=== PATIENT | male | born 1980 | race Caucasian/White ===

== ENCOUNTER 2020-09-15 11:54 | Emergency (ER) | payer MEDICAID ==
[~2020-09-15] VITALS: Ht 177.8 cm; Wt 88.0 kg
[2020-09-15] MEDS ORDERED: BACITRACIN ZINC OINT UDPKT TOP ONE (12:45)
[2020-09-15] MEDS ORDERED: ACETAMINOPHEN WITH CODEINE 300/30MG TABLET PO ONE (12:45)
[2020-09-15] MEDS ORDERED: LIDOCAINE HCL/EPINEPHRINE 1%-EPI 1:100,000 10 ML VIAL IJ ONE (12:45)
[2020-09-15] MEDS ORDERED: TETANUS, DIPHTHERIA, PERTUSSIS VAC/PF 0.5ML (>7YR OLD) IM ONE (12:45)
[2020-09-15] MEDS ORDERED: LIDOCAINE HCL/EPINEPHRINE 1%-EPI 1:100,000 20 ML VIAL INFIL ONE (13:00)
[2020-09-15 14:45] VITALS: BP 138/70
[2020-09-15] MEDS ORDERED: BO1 TP (15:02)
== END 2020-09-15 15:08 | disposition home or self-care (01) ==
LOC: ER 12:12
DX: S51.011A Laceration without foreign body of right elbow, initial encounter (principal); X99.8XXA Assault by other sharp object, initial encounter; Y93.89 Activity, other specified; Y92.511 Restaurant or cafe as the place of occurrence of the external cause; Z23 Encounter for immunization
CPT/HCPCS: 12001; 73080; 90471; 90715; 99283; A4217; J3490; Z7610

== ENCOUNTER 2020-10-25 09:52 | Emergency (ER) | payer MEDICAID, OTHER ==
[~2020-10-25] VITALS: Ht 170.2 cm; Wt 79.0 kg
[~2020-10-25 09:52] MED LIST: BO1 TP
[2020-10-25 09:54] VITALS: BP 153/88
[2020-10-25] MEDS ORDERED: MUPIROCIN 2% OINT 22GM TOP STA (11:21)
[2020-10-25] MEDS ORDERED: MUPI15CR11 TP (12:52)
== END 2020-10-25 13:35 | disposition home or self-care (01) ==
LOC: ER 09:52
DX: S90.812A Abrasion, left foot, initial encounter (principal); W25.XXXA Contact with sharp glass, initial encounter; Y93.89 Activity, other specified; Y92.89 Other specified places as the place of occurrence of the external cause
CPT/HCPCS: 73630; 99283; Z7610

== ENCOUNTER 2023-10-11 15:35 | Emergency (ER) | payer MEDICAID, OTHER ==
[~2023-10-11] VITALS: Ht 167.6 cm; Wt 78.0 kg
[~2023-10-11 15:35] MED LIST changes: +MUPI15CR11 TP
[2023-10-11 15:46] VITALS: BP 130/85; PULSE 95; RESP 16; TEMP 98.3; O2SAT 99
== END 2023-10-11 15:50 | disposition left against medical advice (07) ==
LOC: ER 15:35
DX: M79.673 Pain in unspecified foot (principal); Z53.21 Procedure and treatment not carried out due to patient leaving prior to being seen by health care provider